=== PATIENT | male | born 1955 | race Caucasian/White ===

== ENCOUNTER → 2017-02-14 | Day surgery (SDC) | payer OTHER ==
[~2017-02-14] MED LIST: ALBU8I INH; BACITRACIN TOP OINT 15 GM TUBE ONE; BUPIVACAINE HCL PF 0.5% 10 ML VIAL ONE; DEXAMETHASONE SOD PHOS PF 10 MG/ML VIAL ONE; GLIM2TAB PO; KETOROLAC TROMETHAMINE 30 MG/ML (IVP) VIAL IV PUSH ONE; LACTATED RINGER'S 1000 ML INJ 1,000 ML ONE; LEVEMIR SQ; LISI-363 PO; LORTA5 PO; MIDAZOLAM HCL 2 MG/2 ML VIAL ONE; NOVOLOGP2 SQ; ONDANSETRON HCL 4 MG/2 ML VIAL IV PUSH ONE; PROPOFOL 200 MG/20 ML AMP IV ONE; ceFAZolin 2 GM PREMIX 50 ML ONE
--- NOTE | 2017-02-15 09:03 | MP ---
cc: SOLEDAD REEVES DATE OF SURGERY: 02/14/[address] 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 PREOPERATIVE DIAGNOSIS 1. Right foot third interspace neuroma. 2. Left hallux painful ingrown nail. POSTOPERATIVE DIAGNOSIS 1. Right foot third interspace neuroma. 2. Left hallux painful ingrown nail. PROCEDURE 1. Right foot neurectomy. 2. Left hallux matrixectomy. PATHOLOGY SENT Right foot neuroma. ANESTHESIA General. HEMOSTASIS Pneumatic ankle tourniquet to the right ankle at 250 mmHg. ESTIMATED BLOOD LOSS Less than 5 mL. MATERIALS USED 3-0 Monocryl, 3-0 Prolene and Phenol. INJECTABLES 10 cc of 0.5% Marcaine plain and 1 cc of dexamethasone. COMPLICATIONS None. INDICATIONS Mr. Pelaez is a 61-year-old male patient referred to me by one of my partners for a painful right foot neuroma as well as a dystrophic painful ingrown left hallux nail. The patient is electing to have both areas of concern surgically removed. The procedure was explained. The consent was signed. No guarantees were given. DETAILS OF PROCEDURE Under mild sedation the patient was brought into the operating room and placed on the operating table in supine position. Following IV sedation the left foot was scrubbed and prepped in the usual aseptic manner. Attention was directed to the left hallux toenail which was extremely ingrown and dystrophic. It was freed from soft tissue attachments using a Cortland elevator and ultimately removed from the toe using a large hemostat. The nail bed was then cleaned with sterile saline and a rongeur. Phenol was then applied to the matrix for approximately two minutes. The surrounding skin was again cleaned with sterile saline. Adaptic, bacitracin, 4x4s, Mahesh and Coban were applied to the left hallux. Capillary fill time remained steady throughout the entire procedure. Attention was then directed to the right foot which was scrubbed, prepped and draped in the usual aseptic manner. An Esmarch bandage was used to exsanguinate the right foot and a pneumatic ankle tourniquet was inflated to 250 mmHg. Attention was directed to the dorsal aspect of the third interspace. The incision was bluntly deepened through soft tissue until a bulbous neuroma was easily identified in the third interspace. It was traced to its most distal and most proximal orientations which were sharply severed and the neuroma was removed from the field in toto. The interspace was then flushed with copious amounts of sterile saline and further explored for any space-occupying lesions. Once that exploration was satisfied the area was again flushed with copious amounts of sterile saline. Deep and subcutaneous tissues were closed with 3-0 Monocryl, skin was closed with 3-0 Prolene. 10 cc of Marcaine plain were injected around the incision site and 1 cc of dexamethasone was injected into the interspace. The pneumatic ankle tourniquet was released. There was a prompt hyperemic response to all digits of the right foot. The patient tolerated the procedure and the anesthesia well. Sterile dressing of Adaptic, 4x4s, Mahesh and Angel wrap was applied. He will recover in the PACU for a period time before being discharged home with written and oral postoperative instructions. Soledad TELLEZ /8:27 AM /8:52 AM MTDD
== END | disposition home or self-care (01) ==
LOC: ESDC 08:36
PROVIDERS: ATTEND Podiatrist Foot & Ankle Surgery
DX: G57.61 Lesion of plantar nerve, right lower limb (principal); L60.0 Ingrowing nail; E11.9 Type 2 diabetes mellitus without complications; Z79.4 Long term (current) use of insulin
CPT/HCPCS: 00400; 01470; 11750; 28080; 82948; 88304; J0690; J1100; J1885; J2250; J2405; J3010; J7120